=== PATIENT | female | born 1960 | race Caucasian/White ===

== ENCOUNTER → 2018-12-12 | Outpatient (CLI) | payer BC | LOC: SL 20:27 | PROVIDERS: ATTEND Family Medicine | DX: G47.10 Hypersomnia, unspecified (principal); R06.83 Snoring; R51 Headache; I10 Essential (primary) hypertension ==

== ENCOUNTER → 2020-04-04 | Outpatient (CLI) | payer OTHER, SELFPAY ==
--- NOTE | 2020-04-04 12:50 | MRI ---
EXAM DESCRIPTION: Lumbar Spine w/o Contrast CLINICAL HISTORY: MERALGIA PARESTHETIC BILATERAL. Bilateral leg numbness. COMPARISON: None Available. TECHNIQUE: MRI of the lumbar spine is performed according to our usual protocol with axial and sagittal multi sequence imaging. FINDINGS: The designated L5-S1 disc space is on axial T2 image 3. Mild dextroconvex curvature in the upper lumbar spine. Trace retrolisthesis of L1 on L2. Mixed Modic type I and type II endplate changes at this level. There is no acute fracture or destructive osseous lesion. The conus medullaris terminates normally. L1-2: Disc desiccation with moderate disc narrowing. Mild facet hypertrophy. 3 mm leftward eccentric disc bulge. Mild left neural foraminal stenosis and mild left lateral recess narrowing. The spinal canal and right neural foramen are patent. L2-3: Disc desiccation. Moderate facet hypertrophy. 1.5 mm disc bulge. No stenosis. L3-4: Disc desiccation. Moderate facet hypertrophy with ligamentum flavum thickening. Minimal annular disc bulge. No stenosis. L4-5: Disc desiccation. Moderate facet hypertrophy. Minimal annular disc bulge. No stenosis. L5-S1: Disc desiccation with mild disc narrowing. Posterior annular tear. Moderate facet hypertrophy. 2.5 mm disc bulge and shallow central disc protrusion. Mild right greater than left lateral recess narrowing. The spinal canal and neural foramina remain patent. IMPRESSION: 1. Mild dextroconvex scoliosis, multilevel lumbar disc degeneration, and facet degenerative changes. At L1-L2, there is mild left neural foraminal stenosis and mild left lateral recess narrowing. 2. At L5-S1, there is mild right greater than left lateral recess narrowing. 3. Other findings as above. Electronically signed by: Navneet Hu MD 04/04/2020 12:48 PM [facility]
== END ==
LOC: MRI 11:43
PROVIDERS: ATTEND Family Medicine
DX: G57.13 Meralgia paresthetica, bilateral lower limbs (principal); M41.9 Scoliosis, unspecified; M51.36 Other intervertebral disc degeneration, lumbar region; M48.061 Spinal stenosis, lumbar region without neurogenic claudication; M47.896 Other spondylosis, lumbar region; M51.86 Other intervertebral disc disorders, lumbar region

== ENCOUNTER → 2020-04-05 | Outpatient (CLI) | payer OTHER, SELFPAY ==
--- NOTE | 2020-04-05 11:34 | MRI ---
EXAM DESCRIPTION: Brain w/wo Contrast CLINICAL HISTORY: CAUDA EQUINA SYNDROME COMPARISON: None TECHNIQUE: Multiplanar, multi sequence MR images of the head are obtained with and without IV gadolinium contrast using standard imaging protocol. FINDINGS: The midline structures are not displaced. Sulci are age appropriate. The lateral, third, and fourth ventricles are normal in size, shape, and anatomic positioning. Normal aleman-white differentiation is seen. Normal flow voids are seen in the major intracranial vessels including the dural venous sinuses. No Chiari malformation. No spinal cord syrinx in the upper cervical spine. There is no evidence of mass, mass effect, hydrocephalus, or acute intracranial hemorrhage. No abnormal extra-axial fluid collections are seen. No abnormal increased signal is seen on FLAIR, T2, or diffusion-weighted sequences. Gradient echo images show no abnormal signal. The pituitary is unremarkable. Visualized paranasal sinuses are unremarkable. The visualized orbits and mastoid air cells are unremarkable. IMPRESSION: Normal pre and postcontrast MRI of the brain. No MRI evidence of acute intracranial ischemia, mass, or abnormal enhancement. Electronically signed by: George Byrnes MD 04/05/2020 11:32 AM [facility]
== END ==
LOC: MRI 09:36
PROVIDERS: ATTEND Family Medicine
DX: R20.2 Paresthesia of skin (principal); G83.4 Cauda equina syndrome

== ENCOUNTER 2020-06-12 13:02 | Emergency (ER) | payer OTHER ==
[2020-06-12] MEDS ORDERED: SODIUM CHLORIDE 0.9% 1000ML 1,000 ML IVS ONE (13:11)
[2020-06-12] MEDS ORDERED: KETOROLAC TROMETHAMINE INJ 30 MG/ML VIAL IM ONE (13:11)
[2020-06-12] MEDS ORDERED: METOCLOPRAMIDE HCL INJ 10 MG/2 ML VIAL IV ONE (13:11)
[2020-06-12] MEDS ORDERED: LABETALOL INJ 5 MG/ML VIAL IV ONE (13:12)
--- NOTE | 2020-06-12 13:15 | ED.PDOC ---
History of Present Illness - General Time Seen by Provider: 06/12/20 13:11 Source: patient, RN notes reviewed, Vital Signs reviewed - History of Present Illness Initial Comments: The patient is a 60F with PMH significant for HTN who presents with headache and uncontrolled blood pressure. The patient states that she takes Lisinopril 20mg daily and her blood pressure is typically well controlled. Today, however, she complains of posterior headache with associated nausea and decreased appetite. She checked her blood pressure at home and noted it to be in the 180s systolic. She took excedrin migraine and an additional 20mg Lisinopril without relief. She denies chest pain, palpitations, shortness of breath or other complaints at this time. Allergies/Adverse Reactions: Allergies NO KNOWN ALLERGY Allergy (Verified 06/12/20 13:27) Home Medications: Ambulatory Orders Lisinopril 20 mg PO BID 06/12/20 Review of Systems - Review of Systems Constitutional: States: malaise. Denies: chills, fever, weakness EENTM: Denies: blurred vision, double vision Respiratory: Denies: cough, short of breath Cardiology: Denies: chest pain, palpitations, syncope Gastrointestinal/Abdominal: States: nausea. Denies: abdominal pain, diarrhea, vomiting Genitourinary: States: no symptoms reported Musculoskeletal: States: no symptoms reported Skin: States: no symptoms reported Neurological: States: headache. Denies: numbness, paresthesia, tingling, weakness Endocrine: States: no symptoms reported Hematologic/Lymphatic: States: no symptoms reported All other Systems: Reviewed and Negative Family Medical History - Family History Mother Family History: Unknown Living Status: Unknown Physical Exam - Physical Exam General Appearance: Anxious, No apparent distress Eye Exam: bilateral normal Ears, Nose, Throat: hearing grossly normal Neck: non-tender, full range of motion, supple Respiratory: no respiratory distress, no accessory muscle use Cardiovascular/Chest: tachycardia Gastrointestinal/Abdominal: non tender, soft Rectal Exam: deferred 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 Her heart rate is normal. There is no evidence for acute hypertensive Emergency. As her BP is usually well controlled and she had a dramatic response to the labetalol, will have her continue to monitor her blood pressure at home rather than adjust or add medications at this time. Advised her to maintain blood pressure log for two weeks and she will follow up with her PCP. Discussed home care instructions and return indications. 06/12/20 14:41 - Results/Orders Results/Orders: 06/12/20 14:03 EKG .ONCE Laboratory Results - last 24 hr 06/12/20 06/12/20 13:40 13:40 WBC 11.1 H RBC 4.85 Hgb 15.2 Hct 45.1 MCV 93.0 MCH 31.3 H MCHC 33.7 RDW 14.1 Plt Count 353 MPV 8.0 Absolute Neuts (auto) 8.00 H Absolute Lymphs (auto) 2.00 Absolute Monos (auto) 0.80 Absolute Eos (auto) 0.10 Absolute Basos (auto) 0.20 H Neutrophils % 72.3 Lymphocytes % 18.2 L Monocytes % 7.3 Eosinophils % 0.8 L Basophils % 1.4 Sodium 136 Potassium 4.0 Chloride 101 Carbon Dioxide 24 Anion Gap 15.0 BUN 11 Creatinine 0.78 BUN/Creatinine Ratio 14.1 Random Glucose 115 H Serum Osmolality 272.3 L Calcium 8.6 - EKG/XRAY/CT Comments: 1318 sinus tachycardia rate 108 nl axis, nl interval no STEMI CT: No acute intracranial abnormality Departure - Departure Clinical Impression: Accelerated hypertension Headache Qualifiers: Headache type: other headache syndrome Qualified Code(s): G44.89 - Other headache syndrome Time of Disposition: 14:43 Disposition: Discharge to Home or Self Care Condition: Good Instructions: High Blood Pressure (DC) Diet: resume usual diet Activity: increase activity as tolerated Referrals: ASHLEE STARKS MD [Primary Care Provider] - 1-2 Weeks Home Medications: Ambulatory Orders Lisinopril 20 mg PO BID 06/12/20 Additional Instructions: Maintain home blood pressure log for at least two weeks. Follow up with your primary care provider for recheck. Return to the ED with any worsening of your symptoms.
[2020-06-12 13:30] VITALS: TEMP 98.9
--- NOTE | 2020-06-12 13:39 | CT ---
PROVIDED CLINICAL HISTORY/REASON FOR EXAM: headache, HTN TECHNIQUE: Volumetric CT data of the brain was obtained without intravenous contrast. This exam was performed according to our departmental dose-optimization program, which includes automated exposure control, adjustment of the mA and/or kV according to patient size and/or use of iterative reconstruction technique. COMPARISON: None available. FINDINGS: The ventricles and sulci are normal, without hydrocephalus or significant atrophy. Septum pellucidum and third ventricle are midline. No acute infarction is evident by CT. No acute hemorrhage is present. No mass or mass effect is present. The calvaria and soft tissues are unremarkable. The visualized paranasal sinuses are unremarkable. IMPRESSION: No acute intracranial abnormality. Electronically signed by: Chance Ochoa MD 06/12/2020 1:37 PM [facility]
[2020-06-12] MEDS ORDERED: KETOROLAC TROMETHAMINE INJ 30 MG/ML VIAL ONE (13:51)
[2020-06-12] MEDS ORDERED: SODIUM CHLORIDE 0.9% 1000ML 1,000 ML ONE (13:52)
[2020-06-12] MEDS ORDERED: LABETALOL INJ 5 MG/ML VIAL ONE (13:52)
[2020-06-12] MEDS ORDERED: METOCLOPRAMIDE HCL INJ 10 MG/2 ML VIAL ONE (13:52)
[2020-06-12] MEDS ORDERED: KETOROLAC TROMETHAMINE INJ 30 MG/ML VIAL IV ONE (14:05)
[2020-06-12 14:14] VITALS: O2SAT 96
[2020-06-12 15:17] VITALS: BP 150/83
== END 2020-06-12 15:13 | disposition home or self-care (01) ==
LOC: ER 13:02
DX: I10 Essential (primary) hypertension (principal); R51.9 Headache, unspecified; R00.0 Tachycardia, unspecified; R11.0 Nausea; Z79.899 Other long term (current) drug therapy
CPT/HCPCS: 36415; 70450; 80048; 85025; 93005; J1885; J2765; J7030